=== PATIENT | female | born 1950 | race African-American/Black ===

== ENCOUNTER 2024-01-12 09:37 | Emergency (ER) | payer OTHER, MEDICAID ==
[2024-01-12] MEDS ORDERED: Boostrix 0.5 ML (Tdap) VIAL (>/=7 yrs of age) ONE (10:07)
[2024-01-12] MEDS ORDERED: Midazolam HCl 5 mg/ml Vial ONE (10:15)
== END 2024-01-12 13:41 ==
LOC: ERS 09:37 → EDBD 09:37 → ERS 13:41
DX: S01.01XA Laceration without foreign body of scalp, initial encounter (principal); I10 Essential (primary) hypertension; W22.8XXA Striking against or struck by other objects, initial encounter; Z23 Encounter for immunization
CPT/HCPCS: 70450; 72125; 90715; 93005; J2250; 12001; 90471; 96372